=== PATIENT | female | born 1980 | race Caucasian/White ===

== ENCOUNTER 2019-07-13 23:42 | Emergency (ER) | payer OTHER ==
[2019-07-14] MEDS ORDERED: PREDNISONE 20 MG TABLET PO ONE (01:02)
[2019-07-14] MEDS ORDERED: DIAZEPAM 5 MG TABLET PO ONE (01:02)
[2019-07-14] MEDS ORDERED: HYDROCODONE/ACETAMINOPHEN 5-325 MG (6 TAB/ER DISP) PO PRN (01:03)
--- NOTE | 2019-07-14 01:16 | ER Document Report ---
ED General - General Chief Complaint: Neck and Upper Back Pain Stated Complaint: NECK/BACK PAIN Time Seen by Provider: 07/14/19 00:49 Primary Care Provider: KESHAWN DUVAL [Primary Care Provider] - Follow up as needed TRAVEL OUTSIDE OF THE [place] IN LAST 30 DAYS: No - HPI Notes: Patient is a 38-year-old female who presents emergency department for evaluation of pain in the left side of her neck and into her shoulder. Her symptoms have been present for about 9 days. She woke after sleeping, stated that her neck felt stiff. She seen her doctor, chiropractor, has been on ibuprofen. She has not had any significant relief. She states that she noted she started to feel numbness and tingling in her left forearm about 3 days ago. She denies any weakness. No fevers or chills. No sore throat. No other acute complaints or concerns. - Related Data Allergies/Adverse Reactions: egg Allergy (Verified 07/14/19 00:21) Home Medications: Ibuprofen Past Medical History - General Information source: Patient - Social History Smoking Status: Former Smoker Frequency of alcohol use: Rare Drug Abuse: None Family History: Reviewed & Not Pertinent Patient has suicidal ideation: No Patient has homicidal ideation: No Neurological Medical History: Denies: Hx Seizures Endocrine Medical History: Denies: Hx Hyperthyroidism, Hx Hypothyroidism Renal/ Medical History: Reports: Hx Ovarian Cysts - years ago. Denies: Hx Pelvic Inflammatory Disease Malignancy Medical History: Denies: Hx Breast Cancer, Hx Cervical Cancer, Hx Ovarian Cancer Past Surgical History: Reports: Hx Section - times 3, Hx Tonsillectomy. Denies: Hx Pacemaker - Immunizations Hx Diphtheria, Pertussis, Tetanus Vaccination: Yes Review of Systems - Review of Systems Constitutional: No symptoms reported EENT: No symptoms reported Cardiovascular: No symptoms reported Respiratory: No symptoms reported Gastrointestinal: No symptoms reported Genitourinary: No symptoms reported Musculoskeletal: See HPI Skin: No symptoms reported Neurological/Psychological: See HPI Physical Exam - Vital signs Vitals: Temp Pulse Resp BP Pulse Ox 97.9 F 82 18 126/72 H 100 07/13/19 23:46 07/13/19 23:46 07/13/19 23:46 07/13/19 23:46 07/13/19 23:46 - Notes Notes: Is a very pleasant 38-year-old female who appears her stated age. She is sitting in the room with her shoulders tensed, her head looking straight ahead without moving. Vital signs reviewed, please refer to chart. Head is normocephalic, atraumatic. Pupils equal round, reactive to light. Examination of the spine is no midline tenderness or step-off. She has paraspinal musculature tenderness noted to the entire left cervical spine and into the trapezius. Examination of the left upper extremity yields no obvious deformity. She has full range of motion of the shoulder, elbow, wrist, fingers, thumb, with 5+ out of 5 strength throughout the entire left upper extremity. She complains of some diminished sensation to light touch over the left forearm. Biceps and brachioradialis reflexes are 2+. Radial pulse 2+. Heart is regular rate and rhythm. Lungs are clear to auscultation bilaterally. Abdomen is soft, nontender, normoactive bowel sounds throughout. Extremities without cyanosis, clubbing. Posterior calves are nontender. Peripheral pulses are equal. Skin is warm and dry. Patient is awake, alert, neurological exam is nonfocal. Course - Re-evaluation Re-evalutation: 07/14/19 01:13 Patient presents emergency department for evaluation. Given the progressiveness of her symptoms and the significant tension, I do suspect this is all musculoskeletal. She is not showing any significant signs of a central disc herniation causing her symptoms. She is treated here with Valium and prednisone. I will send her home with a dispense pack of some [place], a prescription for Flexeril and prescription strength Naprosyn. She is to follow- up with primary care. If her symptoms persist she may in fact require cervical spine MRI versus EMG. She voiced understanding to this and was discharged. - Vital Signs Vital signs: Temp Pulse Resp BP Pulse Ox 97.9 F 82 18 126/72 H 100 07/13/19 23:46 07/13/19 23:46 07/13/19 23:46 07/13/19 23:46 07/13/19 23:46 Discharge - Discharge Clinical Impression: Muscle spasm, Neck pain, Left upper extremity numbness Condition: Stable Disposition: HOME, SELF-CARE Instructions: Muscle Relaxers ([facility]), Muscle Strain ([facility]) Additional Instructions: Rest. Moist heat to the painful area. Take medications as prescribed, watch for drowsiness with Flexeril. Follow-up with primary care. If your symptoms persist you may require further evaluation with EMG or MRI. Return to the emergency department with worsening or new concerning symptoms of any sort. Referrals: [facility],NO [Primary Care Provider] - Follow up as needed
[2019-07-14 01:29] VITALS: BP 128/74
== END 2019-07-14 01:28 | disposition home or self-care (01) ==
LOC: ER 23:42
DX: M62.838 Other muscle spasm (principal); M54.2 Cervicalgia; R20.0 Anesthesia of skin; R20.2 Paresthesia of skin; M25.519 Pain in unspecified shoulder; Z91.012 Allergy to eggs; Z87.891 Personal history of nicotine dependence
CPT/HCPCS: 99283; J7512